=== PATIENT | female | born 1985 | race Caucasian/White ===

== ENCOUNTER 2022-06-15 17:11 | Emergency (ER) | payer OTHER ==
[~2022-06-15] VITALS: Ht 172.7 cm; Wt 100.4 kg
[2022-06-15 17:11] VITALS: BP 132/77
[2022-06-15] MEDS ORDERED: NAPR500T6 PO (17:17)
== END 2022-06-15 19:12 | disposition left against medical advice (07) ==
LOC: M ED 17:11
DX: Z53.21 Procedure and treatment not carried out due to patient leaving prior to being seen by health care provider (principal)

== ENCOUNTER 2022-08-31 23:43 | Inpatient (IN) | payer OTHER ==
[~2022-08-31] VITALS: Ht 172.7 cm; Wt 80.9 kg
[~2022-08-31 23:43] MED LIST: NAPR500T6 PO
[2022-08-31] MEDS ORDERED: OXYTOCIN DRIP 30 UNITS in IV 1 EA IV SCH (23:55)
[2022-09-01] VITALS (12 sets, daily range): BP systolic 141–190; BP diastolic 76–115
[2022-09-01] MEDS ORDERED: IBUPROFEN 800 MG TAB PO PRN (00:45)
[2022-09-01] MEDS ORDERED: METHYLERGONOVINE MALEATE 0.2 MG TAB PO PRN (00:45)
[2022-09-01] MEDS ORDERED: IBUPROFEN 600MG TAB PO PRN (00:45)
[2022-09-01] MEDS ORDERED: ACETAMINOPHEN TAB 650MG DOSE (2X325MG) PO PRN (00:45)
[2022-09-01] MEDS ORDERED: DIBUCAINE 1% OINTMENT 30GM TOP PRN (00:45)
[2022-09-01] MEDS ORDERED: DOCUSATE SODIUM 100MG CAPSULE PO PRN (00:45)
[2022-09-01] MEDS ORDERED: RHOGAM 300 MCG (1500 IU) INJ (J2790) IM SCH (00:45)
[2022-09-01] MEDS ORDERED: ACETAMINOPHEN 500 MG TAB PO PRN (00:45)
[2022-09-01] MEDS ORDERED: OXYTOCIN DRIP 30 UNITS in IV 1 EA IV SCH (00:50)
[2022-09-01] MEDS ORDERED: NIFEdipine 10 MG CAP PO ONE (01:00)
[2022-09-01 01:06] LABS: BASO # 0.1 10^3/uL (0.0-0.2); BASO % 0.4 % (0.0-1.0); EOS # 0.1 10^3/uL (0.0-0.5); EOS % 0.5 % (0.0-3.0); HEMATOCRIT 30.8 % (36.0-47.0); LYMPH # 2.3 10^3/uL (1.5-5.0); LYMPH % 10.5 % (24.0-44.0); MEAN CORPUSCULAR HEMOGLOBIN 29.4 pg (27.0-33.0); MEAN CORPUSCULAR HGB CONC 32.5 g/dl (32.0-36.5); MEAN CORPUSCULAR VOLUME 90.6 fl (80.0-96.0); MONO % 4.6 % (2.0-8.0); NEUTROPHILS # 18.4 10^3/uL (1.5-8.5); PLATELET COUNT, AUTOMATED 587 10^3/uL (150-450); WHITE BLOOD COUNT 22.2 10^3/uL (4.0-10.0)
[2022-09-01 02:51] LABS: HEPATITIS C VIRUS ABY INDEX < 0.8 INDEX (<0.8); HIV 1&2 SCREEN CENTAUR NEGATIVE (NEGATIVE)
[2022-09-01] MEDS ORDERED: NIFEdipine 30 MG XL TAB PO STA (07:45)
[2022-09-01] MEDS: PRENATAL VITAMINS CHEWABLE TABLET PO SCH (08:22)
[2022-09-01 13:03] LABS: BILIRUBIN,TOTAL 0.3 MG/DL (0.3-1.2); CREATININE FOR GFR 1.13 MG/DL (0.55-1.30); GLOMERULAR FILTRATION RATE 57.4 (>60)
[2022-09-01 16:05] LABS: BARBITURATES URINE REFLEX NEGATIVE (NEGATIVE); BENZODIAZEPINES URINE REFLEX NEGATIVE (NEGATIVE); CANNABINOIDS URINE REFLEX NEGATIVE (NEGATIVE); COCAINE METABOLITE URINE REFLE NEGATIVE (NEGATIVE); METHADONE URINE REFLEX NEGATIVE (NEGATIVE); OPIATES URINE REFLEX NEGATIVE (NEGATIVE)
[2022-09-01 17:22] LABS: AMPHETAMINES URINE REFLEX PENDING CONFIRMATION (NEGATIVE)
[2022-09-02 02:00] VITALS: BP 153/91
[2022-09-02 06:00] VITALS: BP 148/87
[2022-09-02] MEDS: PRENATAL VITAMINS CHEWABLE TABLET PO SCH (08:58)
[2022-09-03] MEDS ORDERED: MEASLES,MUMPS,RUBELLA VACCINE INJ (MMR-II) (90707) SC.IMMUN ONE (09:00)
[2022-09-07 19:07] LABS: Amphetamine Positive (.); Amphetamines Positive (.); GC Amphetamine 592 ng/mL (Cutoff=500); GC Methamphetam 4041 ng/mL (Cutoff=500); Methamphetamine Positive (.)
== END 2022-09-02 16:00 | disposition home or self-care (01) | DRG 544 ==
LOC: M LDI 23:43 → M OBS 09-01 02:07
PROVIDERS: ADMIT Specialist; ATTEND Specialist
PROC: 10D17Z9 Manual Extraction of Products of Conception, Retained, Via Natural or Artificial Opening (ICD-10-PCS; principal; 2022-08-31)
DX: O73.0 Retained placenta without hemorrhage (principal); O16.5 Unspecified maternal hypertension, complicating the puerperium; O99.335 Smoking (tobacco) complicating the puerperium; F17.210 Nicotine dependence, cigarettes, uncomplicated; Z3A.00 Weeks of gestation of pregnancy not specified

== ENCOUNTER → 2022-11-15 | Outpatient (CLI) | payer MEDICAID | LOC: M OUTALCOH 08:21 | PROVIDERS: ATTEND Psychiatry & Neurology Psychiatry | DX: Z02.9 Encounter for administrative examinations, unspecified (principal) ==

== ENCOUNTER → 2022-12-14 | Outpatient (RCR) | payer MEDICAID | LOC: M OUTALCOH 11-24 10:03 | PROVIDERS: ATTEND Psychiatry & Neurology Psychiatry | DX: F12.10 Cannabis abuse, uncomplicated (principal); Z72.0 Tobacco use ==

== ENCOUNTER → 2023-01-14 | Outpatient (RCR) | payer MEDICAID | LOC: M OUTALCOH 12-21 16:00 | PROVIDERS: ATTEND Psychiatry & Neurology Psychiatry | DX: F12.10 Cannabis abuse, uncomplicated (principal); Z72.0 Tobacco use ==

== ENCOUNTER 2023-02-01 16:00 | Outpatient (RCR) | payer MEDICAID | END 2023-02-13 | LOC: M OUTALCOH 16:00 | PROVIDERS: ATTEND Psychiatry & Neurology Psychiatry | DX: F12.10 Cannabis abuse, uncomplicated (principal); Z72.0 Tobacco use ==

== ENCOUNTER → 2023-03-16 | Outpatient (RCR) | payer MEDICAID | LOC: M OUTALCOH 02-15 16:00 | PROVIDERS: ATTEND Psychiatry & Neurology Psychiatry | DX: F12.10 Cannabis abuse, uncomplicated (principal); Z72.0 Tobacco use ==

== ENCOUNTER 2023-04-14 14:00 | Outpatient (RCR) | payer MEDICAID | END 2023-04-15 | LOC: M OUTALCOH 14:00 | PROVIDERS: ATTEND Psychiatry & Neurology Psychiatry | DX: F12.10 Cannabis abuse, uncomplicated (principal); Z72.0 Tobacco use ==